=== PATIENT | male | born 1980 | race Caucasian/White ===

== ENCOUNTER 2017-08-23 06:18 | Inpatient (IN) | payer SELFPAY ==
[~2017-08-23] VITALS: Ht 167.6 cm; Wt 81.4 kg
[2017-08-23] VITALS (8 sets, daily range): BP systolic 117–135; BP diastolic 66–84
[2017-08-23] MEDS ORDERED: ASPIRIN 81MG TABLET PO STA (06:55)
[2017-08-23] MEDS ORDERED: NITROGLYCERIN 0.4MG TABLET SL SL PRN (07:00)
[2017-08-23 07:24] LABS: HEMATOCRIT. 32.6 % (42.0-52.0); HEMOGLOBIN. 10.6 g/dL (14.0-18.0); MEAN CORPUSCULAR HEMOGLOBIN 28.1 pg (28.0-32.0); MEAN CORPUSCULAR VOLUME 86.3 fL (80.0-94.0); RED BLOOD CELL COUNT 3.77 mill/uL (4.7-6.1); RED CELL DISTRIBUTION WIDTH 14.6 % (11.6-14.6)
[2017-08-23 07:25] LABS: BASOPHILS % 0.9 % (0.0-2.0); EOSINOPHILS % 0.5 % (0.0-5.0); LYMPHOCYTES % 12.3 % (20.0-50.0); MEAN PLATELET VOLUME 7.3 fl (7.4-10.4); MONOCYTES % 6.5 % (2.0-8.0); NEUTROPHILS % 79.8 % (40.0-76.0); PLATELET 558 x1000/uL (130-400)
[2017-08-23 07:30] LABS: CHLORIDE 104 mEq/L (98-107)
[2017-08-23 07:36] LABS: INR 1.2; PARTIAL THROMBOPLASTIN TIME 28.9 sec (23.4-31.0)
[2017-08-23 07:44] LABS: D-DIMER 8.81 mg/L FEU (<0.50)
[2017-08-23] MEDS ORDERED: LEVOFLOXACIN 750MG PREMIX 150 ML IV ONE (08:15)
[2017-08-23 08:29] LABS: *AMPHETAMINES SCREEN URINE NEGATIVE (NEGATIVE); *BARBITURATES SCREEN URINE NEGATIVE (NEGATIVE); *BENZODIAZEPINES SCREEN URINE NEGATIVE (NEGATIVE)
[2017-08-23 08:30] LABS: *COCAINE SCREEN URINE NEGATIVE (NEGATIVE); CANNABINOID URINE SCREEN PRESUMTIVE POSITIVE (NEGATIVE); METHADONE URINE SCREEN NEGATIVE (NEGATIVE); OPIATES URINE SCREEN NEGATIVE (NEGATIVE)
[2017-08-23] MEDS ORDERED: OSELTAMIVIR 75MG CAPSULE PO ONE (08:30)
[2017-08-23 08:32] LABS: PHENCYCLIDINE URINE SCREEN NEGATIVE (NEGATIVE)
[2017-08-23] MEDS ORDERED: DIPHENHYDRAMINE 50MG/ML VIAL IV PRN (10:00)
[2017-08-23] MEDS ORDERED: CLONIDINE 0.1MG TABLET PO PRN (10:00)
[2017-08-23] MEDS ORDERED: ACETAMINOPHEN 325MG TABLET PO PRN (10:00)
[2017-08-23] MEDS ORDERED: ONDANSETRON HCL 4MG/2ML VIAL IV PRN (10:00)
[2017-08-23] MEDS ORDERED: DOCUSATE SODIUM 100MG CAPSULE PO SCH (10:45)
[2017-08-23 11:12] LABS: CLARITY URINE TURBID (CLEAR); COLOR URINE DARK YELLOW (YELLOW); KETONES URINE NEGATIVE (NEGATIVE); LEUKOCYTE ESTERASE URINE NEGATIVE (NEGATIVE); NITRITE URINE NEGATIVE (NEGATIVE); OCCULT BLOOD URINE NEGATIVE (NEGATIVE); PROTEIN URINE 1+ (NEGATIVE); SPECIFIC GRAVITY URINE 1.027 (1.005-1.030)
[2017-08-23] MEDS ORDERED: IOHEXOL-350 100 ML BOTTLE ONE (11:16)
[2017-08-23] MEDS: PIPERACILLIN/TAZ 3.375G PREMIX 50 ML IV SCH ×2 (11:36→22:20)
[2017-08-23] MEDS: FOLIC ACID 1MG TABLET PO SCH (16:56)
[2017-08-23] MEDS: THIAMINE HCL 100MG TABLET PO SCH (16:56)
[2017-08-23] MEDS: MULTIVITAMINS,THER W-MINERALS TABLET PO SCH (16:56)
[2017-08-23 17:57] LABS: CREATINE KINASE MB FRACTION < 0.5 ng/mL (0.5-3.6)
[2017-08-23 18:24] LABS: *AMPHETAMINES SCREEN URINE NEGATIVE (NEGATIVE); *BARBITURATES SCREEN URINE NEGATIVE (NEGATIVE)
[2017-08-23 18:25] LABS: *BENZODIAZEPINES SCREEN URINE NEGATIVE (NEGATIVE); *COCAINE SCREEN URINE NEGATIVE (NEGATIVE); METHADONE URINE SCREEN NEGATIVE (NEGATIVE); OPIATES URINE SCREEN PRESUMTIVE POSITIVE (NEGATIVE); PHENCYCLIDINE URINE SCREEN NEGATIVE (NEGATIVE)
[2017-08-23 18:26] LABS: CANNABINOID URINE SCREEN PRESUMTIVE POSITIVE (NEGATIVE)
[2017-08-23] MEDS: ZOLPIDEM TARTRATE 5MG TABLET PO PRN (22:20)
[2017-08-24] VITALS (18 sets, daily range): BP systolic 94–133; BP diastolic 51–77
[2017-08-24] MEDS: IPRATROPIUM/ALBUTEROL 0.5-3(2.5)MG/3ML NEB HHN SCH ×6 (00:25→20:57)
[2017-08-24 02:44] LABS: CREATINE KINASE MB FRACTION < 0.5 ng/mL (0.5-3.6)
[2017-08-24] MEDS: PIPERACILLIN/TAZ 3.375G PREMIX 50 ML IV SCH ×3 (05:20→23:13)
[2017-08-24 07:20] LABS: BASOPHILS % 0.8 % (0.0-2.0); EOSINOPHILS % 0.7 % (0.0-5.0); HEMATOCRIT. 33.5 % (42.0-52.0); HEMOGLOBIN. 10.9 g/dL (14.0-18.0); LYMPHOCYTES % 16.1 % (20.0-50.0); MEAN CORPUSCULAR HEMOGLOBIN 27.9 pg (28.0-32.0); MONOCYTES % 6.7 % (2.0-8.0); NEUTROPHILS % 75.7 % (40.0-76.0); RED CELL DISTRIBUTION WIDTH 14.6 % (11.6-14.6)
[2017-08-24 08:04] LABS: BG BASE EXCESS 2.2 mmol/L (-2.0-2.0); BG CARBOXYHEMOGLOBIN 0.2 % (0.5-1.5); BG DEOXYHEMOGLOBIN 3.8 % (0.0-5.0); BG FRACTION INSPIRED OXYGEN 21; BG HCO3 ACT 25.3 mmol/L (22.0-26.0); BG METHEMOGLOBIN 0.3 % (0.0-1.5); BG OXYGEN SATURATION 96.2 % (92.0-98.5); BG OXYHEMOGLOBIN 95.7 % (94.0-97.0); BG PCO2 34.4 mmHg (35.0-45.0); BG PH 7.485 (7.350-7.450); BG SAMPLE SITE LEFT BRACHIAL; BG TOTAL HEMOGLOBIN 11.5 g/dL (12.0-18.0); BG VENT MODE ROOM AIR
[2017-08-24 08:16] LABS: CHLORIDE 105 mEq/L (98-107)
[2017-08-24 08:33] LABS: LDL CHOLESTEROL 82 mg/dL (5-100)
[2017-08-24 08:37] LABS: MEAN PLATELET VOLUME 8.1 fl (7.4-10.4); PLATELET 465 x1000/uL (130-400)
[2017-08-24 08:39] LABS: HDL CHOLESTEROL 27 mg/dL (40-59)
[2017-08-24] MEDS: FOLIC ACID 1MG TABLET PO SCH (08:40)
[2017-08-24] MEDS: LORAZEPAM 0.5MG TABLET PO PRN ×2 (08:40→20:53)
[2017-08-24] MEDS: GUAIFENESIN 200MG/10ML SUGAR FREE UDC PO PRN (08:40)
[2017-08-24] MEDS: THIAMINE HCL 100MG TABLET PO SCH (08:40)
[2017-08-24] MEDS: MULTIVITAMINS,THER W-MINERALS TABLET PO SCH (08:40)
[2017-08-24] MEDS: PROPRANOLOL HCL 10MG TABLET PO SCH ×3 (08:41→20:54)
[2017-08-24] MEDS: DOCUSATE SODIUM 250MG CAPSULE PO SCH (08:42)
[2017-08-24] MEDS ORDERED: THIAMINE HCL 100MG TABLET PO SCH (09:00)
[2017-08-24] MEDS ORDERED: AZITHROMYCIN 500 MG TABLET PO NR (11:00)
[2017-08-24] MEDS: AZITHROMYCIN 500 MG TABLET PO SCH (11:25)
[2017-08-25] VITALS (12 sets, daily range): BP systolic 94–135; BP diastolic 61–75
[2017-08-25] MEDS: IPRATROPIUM/ALBUTEROL 0.5-3(2.5)MG/3ML NEB HHN SCH ×6 (01:16→21:04)
[2017-08-25] MEDS: PROPRANOLOL HCL 10MG TABLET PO SCH ×3 (05:43→22:35)
[2017-08-25] MEDS: PIPERACILLIN/TAZ 3.375G PREMIX 50 ML IV SCH ×3 (05:44→22:30)
[2017-08-25] MEDS: GUAIFENESIN 200MG/10ML SUGAR FREE UDC PO PRN ×2 (08:33→18:12)
[2017-08-25] MEDS: MULTIVITAMINS,THER W-MINERALS TABLET PO SCH (08:33)
[2017-08-25] MEDS: THIAMINE HCL 100MG TABLET PO SCH (08:33)
[2017-08-25] MEDS: DOCUSATE SODIUM 250MG CAPSULE PO SCH (08:34)
[2017-08-25] MEDS: FOLIC ACID 1MG TABLET PO SCH (08:34)
[2017-08-25 12:27] LABS: BG BASE EXCESS 1.7 mmol/L (-2.0-2.0); BG CARBOXYHEMOGLOBIN 0.2 % (0.5-1.5); BG DEOXYHEMOGLOBIN 5.4 % (0.0-5.0); BG HCO3 ACT 24.8 mmol/L (22.0-26.0); BG METHEMOGLOBIN 0.2 % (0.0-1.5); BG OXYGEN SATURATION 94.6 % (92.0-98.5); BG OXYHEMOGLOBIN 94.2 % (94.0-97.0); BG PCO2 33.9 mmHg (35.0-45.0); BG PH 7.482 (7.350-7.450); BG PO2 67.3 mmHg (75.0-100.0); BG SAMPLE SITE LEFT RADIAL; BG TOTAL HEMOGLOBIN 11.5 g/dL (12.0-18.0); BG VENT MODE ROOM AIR
[2017-08-25] MEDS ORDERED: LIDOCAINE HCL/PF 1% 2ML VIAL ONE (13:38)
[2017-08-25 15:52] LABS: EOSINOPHILS % 0.5 % (0.0-5.0); HEMATOCRIT. 33.4 % (42.0-52.0); HEMOGLOBIN. 10.9 g/dL (14.0-18.0); MEAN CORPUSCULAR HEMOGLOBIN 28.3 pg (28.0-32.0); MEAN CORPUSCULAR VOLUME 86.5 fL (80.0-94.0); MEAN PLATELET VOLUME 7.3 fl (7.4-10.4); MONOCYTES % 8.9 % (2.0-8.0); NEUTROPHILS % 69.6 % (40.0-76.0); PLATELET 522 x1000/uL (130-400); RED BLOOD CELL COUNT 3.86 mill/uL (4.7-6.1)
[2017-08-25] MEDS: ZOLPIDEM TARTRATE 5MG TABLET PO PRN (22:35)
[2017-08-26] VITALS (9 sets, daily range): BP systolic 85–133; BP diastolic 56–66
[2017-08-26] MEDS: IPRATROPIUM/ALBUTEROL 0.5-3(2.5)MG/3ML NEB HHN SCH ×4 (00:54→12:05)
[2017-08-26] MEDS: PIPERACILLIN/TAZ 3.375G PREMIX 50 ML IV SCH (05:42)
[2017-08-26] MEDS: PROPRANOLOL HCL 10MG TABLET PO SCH (05:43)
[2017-08-26 07:43] LABS: EOSINOPHILS % 1.5 % (0.0-5.0); HEMATOCRIT. 32.2 % (42.0-52.0); HEMOGLOBIN. 10.6 g/dL (14.0-18.0); LYMPHOCYTES % 23.6 % (20.0-50.0); MEAN CORPUSCULAR HEMOGLOBIN 28.2 pg (28.0-32.0); MEAN CORPUSCULAR VOLUME 85.5 fL (80.0-94.0); MEAN PLATELET VOLUME 7.8 fl (7.4-10.4); MONOCYTES % 7.4 % (2.0-8.0); NEUTROPHILS % 65.5 % (40.0-76.0); PLATELET 540 x1000/uL (130-400); RED BLOOD CELL COUNT 3.76 mill/uL (4.7-6.1); RED CELL DISTRIBUTION WIDTH 14.5 % (11.6-14.6)
[2017-08-26 07:44] LABS: CHLORIDE 104 mEq/L (98-107)
[2017-08-26] MEDS: FOLIC ACID 1MG TABLET PO SCH (08:55)
[2017-08-26] MEDS: GUAIFENESIN 200MG/10ML SUGAR FREE UDC PO PRN (08:55)
[2017-08-26] MEDS: THIAMINE HCL 100MG TABLET PO SCH (08:55)
[2017-08-26] MEDS: AZITHROMYCIN 500 MG TABLET PO SCH (08:55)
[2017-08-26] MEDS: DOCUSATE SODIUM 250MG CAPSULE PO SCH (08:55)
[2017-08-26] MEDS: MULTIVITAMINS,THER W-MINERALS TABLET PO SCH (08:55)
== END 2017-08-26 12:35 | disposition home or self-care (01) | DRG 133 ==
LOC: ER 06:18 → 3WST 08:21 → EDBEDREQSVC 08:21 → EDBEDREQTM 08:23 → EDBEDREQ 08:23 → ENRESERV 09:05
PROVIDERS: ADMIT Internal Medicine Geriatric Medicine; ATTEND Internal Medicine Geriatric Medicine
DX: J96.00 Acute respiratory failure, unspecified whether with hypoxia or hypercapnia (principal); J18.9 Pneumonia, unspecified organism; E46 Unspecified protein-calorie malnutrition; I31.3 Pericardial effusion (noninflammatory); D64.9 Anemia, unspecified; E66.9 Obesity, unspecified; F10.10 Alcohol abuse, uncomplicated; F12.90 Cannabis use, unspecified, uncomplicated; J98.11 Atelectasis; R73.9 Hyperglycemia, unspecified; Z68.29 Body mass index [BMI] 29.0-29.9, adult
CPT/HCPCS: 36415; 36600; 71045; 71275; 80048; 80053; 80061; 80305; 81003; 82375; 82553; 82805; 83605; 83735; 83880; 84443; 84484; 85025; 85379; 85610; 85730; 87040; 87086; 87804; 93005; 93306; 93970; 94640; G0482; J1956; J2543; J3490; J7050; J7620; Q9967